=== PATIENT | male | born 1945 | race Caucasian/White ===

== ENCOUNTER → 2017-05-05 | Outpatient (CLI) | payer MEDICARE ==
[~2017-05-05] MED LIST: BUMETANIDE2 MG PO; HYDRALAZINE HCL25 MG PO; ISOSORBIDE MONO60 MG PO; LOPRESSOR50 MG PO; MAGNESIUM DR64 MG PO; NORCO 5-325 TA1 EACH PO; NORVASC10 MG PO; PHENYTOIN SODI100 MG PO; TERAZOSIN HCL5 MG PO
== END | disposition disaster alternative care site (69) ==
LOC: GRAD 16:00
DX: R22.0 Localized swelling, mass and lump, head (principal); I67.82 Cerebral ischemia

== ENCOUNTER → 2017-05-16 | Outpatient (CLI) | payer MEDICARE ==
[2017-05-16 14:50] LABS: INR - (THERAPEUTIC) 1.03 (0.92-1.07); PROTIME 10.8 SECONDS (9.8-11.4)
== END ==
LOC: LGSMG 14:37
PROVIDERS: Internal Medicine
DX: Z01.818 Encounter for other preprocedural examination (principal); N18.5 Chronic kidney disease, stage 5; M89.9 Disorder of bone, unspecified

== ENCOUNTER → 2017-05-26 | Outpatient (CLI) | payer MEDICARE ==
--- NOTE | ~2017-05-26 | ESTC ---
Cardiac Perfusion Imaging Demographics Patient Name MARGO Cabral Gender Male Patient Number [id number] Race Visit Number [id number] Ethnicity Corporate ID Room Number Accession Number [id number] Height Date of 1945 Weight Age 72 year(s) BSA Referring Physician Víctor JOSEPH MD Interpreting FAREED - Ananya Date of study 05/26/2017 Physician Víctor Friedman MD Supervising MD/MLP Víctor Friedman NM Technologist Cynthia Sanders MD Ordering Physician Víctor Friedman Stress automotive drivability technician Stress ECG Reading Víctor Friedman Nurse Pia Yepez Physician MD WESTLEY Ochoa The procedure was explained in detail to the patient. Risks, complications and alternative treatments were reviewed. Written consent was obtained. Medications Reviewed with Patient prior to Procedure. Procedure Procedure Type: Nuclear Stress Test:Cardiolite Stress Test Procedure Start time: 05/26/2017 09:50 Indications: Abnormal rest ECG and pre surgical clearance. Risk Factors The patient risk factors include:cerebrovascular disease, former tobacco use, treated hypertension, diet treated diabetes mellitus, renal failure currently treated with dialysis and ( years not smokin). Conclusions Summary Perfusion Images: The overall quality of the study is fair. Left ventricular cavity is noted to be normal on the stress and normal on the rest images. There is no evidence of abnormal lung activity. The right ventricle is not visualized an cannot be assessed. Impression ECG portion of the stress test is clinically negative for ischemia by diagnostic criteria. Myocardial perfusion imaging is moderately abnormal. 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 Overall left ventricular systolic function was normal. Calculated LVEF is 58% and TID ratio is 1.2. This is a intermediate risk stress test. Stress Protocols Resting ECG NSR Resting HR:70 bpm Resting BP:161/72 mmHg Pre-stress physical exam: clear lungs Predicted HR: 148 bpm ECG Findings No ECG changes suggestive of ischemia. Arrhythmias No rhythm abnormality. Symptoms Nausea. Stress Interpretation Appropriate hemodynamic response to Lexiscan. No significant ST-T wave changes with Lexiscan. ECG portion is negative for ischemia by diagnostic criteria. Imaging Results Summed scores - Summed stress score: 21 - Summed rest score: 22 - Summed difference score: -1 Stress ejection Ejection fraction:57 % EDV :129 ml ESV :55 ml Stroke volume :74 ml LV mass :167 gr Imaging Protocols Rest Stress Isotope:Tc99m Sestamibi IV Isotope: Tc99m Sestamibi IV Isotope dose:14.5 mCi Isotope dose:45.6 mCi Date:05/26/2017 08:14 Date:05/26/2017 10:20 Technique: SPECT Technique: Gated Supine SPECT Supine Scan Time:45-60 minutes post Scan Time:45-60 minutes post injection injection Procedure Medications - Regadenoson (Lexiscan) 0.4 mg IV over 10-15 sec. I.V. 0.4 mg. - Zofran I.V. 4 mg. Medications administered per verbal order and read back to physician prior to administration. Medical History Admission Data Admission date: 05/26/2017 Admission Time: 07:44 Hospital Status: Outpatient. Signatures dtt: JOHANN KOROMA dtd: 05/26/17 0950 Physician Self Edit
== END | disposition disaster alternative care site (69) ==
LOC: GRAD 05-25 07:45
DX: Z01.818 Encounter for other preprocedural examination (principal); I67.9 Cerebrovascular disease, unspecified; I10 Essential (primary) hypertension; E11.9 Type 2 diabetes mellitus without complications; N19 Unspecified kidney failure; R94.31 Abnormal electrocardiogram [ECG] [EKG]; Z87.891 Personal history of nicotine dependence
CPT/HCPCS: A9500; J2405; J2785

== ENCOUNTER → 2017-06-05 | Outpatient (CLI) | payer MEDICARE | END | disposition disaster alternative care site (69) | LOC: GAMB 16:34 | DX: I12.9 Hypertensive chronic kidney disease with stage 1 through stage 4 chronic kidney disease, or unspecified chronic kidney disease (principal); N18.2 Chronic kidney disease, stage 2 (mild); E11.9 Type 2 diabetes mellitus without complications ==

== ENCOUNTER → 2017-06-05 | Outpatient (CLI) | payer MEDICARE | END | disposition disaster alternative care site (69) | LOC: GAMB 15:35 | DX: C80.1 Malignant (primary) neoplasm, unspecified (principal) ==

== ENCOUNTER → 2017-06-12 | Outpatient (CLI) | payer MEDICARE | END | disposition disaster alternative care site (69) | LOC: GAMB 16:30 | DX: I12.9 Hypertensive chronic kidney disease with stage 1 through stage 4 chronic kidney disease, or unspecified chronic kidney disease (principal); E11.9 Type 2 diabetes mellitus without complications ==